=== PATIENT | male | born 1990 | race Caucasian/White ===

== ENCOUNTER 2016-05-16 12:14 | Emergency (ER) | payer OTHER ==
[2016-05-16] MEDS ORDERED: IBUPROFEN 800 MG TABLET PO STA (13:53)
[2016-05-16] MEDS ORDERED: IBUPROFEN 800 MG TABLET PO ONE (13:57)
== END 2016-05-16 14:00 | disposition home or self-care (01) ==
DX: R09.1 Pleurisy (principal)
CPT/HCPCS: 93005; 93010; 99283; A9270